=== PATIENT | female | born 2000 | race Caucasian/White ===

== ENCOUNTER 2019-10-14 18:15 | Emergency (ER) | payer OTHER ==
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
[2019-10-14] MEDS ORDERED: Tetan/Diph/Pertus SYR(Tdap)* 0.5 ML SYR(BOOSTRIX) use SYR contains LATEX IM ONE (18:25)
[2019-10-14 18:28] VITALS: BP 111/69
[2019-10-14] MEDS ORDERED: Lidocaine 2% PF * 5 ML VIAL INJ ONE (18:38)
[2019-10-14] MEDS ORDERED: Cephalexin CAP* 500 MG PO ONE (18:38)
== END 2019-10-14 19:14 | disposition home or self-care (01) ==
LOC: UCEAST 18:15
DX: S81.812A Laceration without foreign body, left lower leg, initial encounter (principal); Z23 Encounter for immunization; V19.3XXA Pedal cyclist (driver) (passenger) injured in unspecified nontraffic accident, initial encounter; Y93.55 Activity, bike riding; Y92.828 Other wilderness area as the place of occurrence of the external cause
CPT/HCPCS: 12002; 90471; 90715; 99212; A9270-GY; G0463